=== PATIENT | female | born 1960 | race Caucasian/White ===

== ENCOUNTER 2016-07-05 08:56 | Inpatient (IN) | payer OTHER ==
[~2016-07-05] VITALS: Ht 170.2 cm; Wt 85.0 kg
--- NOTE | 2016-07-05 09:04 | NUR ---
EKG DONE IN TRIAGE
--- NOTE | 2016-07-05 09:16 | NUR ---
PT AMBULATORY TO BED 5 FROM TRIAGE WITH STEADY GAIT C/O CHEST PAIN X1 DAY. PT DESCRIBES PAIN CONSTANT AND STATES, "IT FEELS LIKE MY HEART IS WORKING REALLY HARD," REPORTS SHE WAS LAYING DOWN WHEN PAIN BEGAN. PT ALSO REPORTS HX OF ANXIETY WITH LAST TIME TAKING XANAX 6 MONTHS AGO D/T PAIN MANAGEMENT MD TAKING HER OFF OF IT. PT ALSO REPORTS SMOKING CIGARETTES, 1 PACK PER WEEK. PT A/O X4, APPEARS SLIGHTLY ANXIOUS, RESPS EVEN AND UNLABORED, SKIN WARM/DRY TO TOUCH, NO S/S OF DISTRESS NOTED. 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
--- NOTE | 2016-07-05 09:40 | NUR ---
DR. HAMMER AT BEDSIDE FOR MSE.
--- NOTE | 2016-07-05 09:59 | NUR ---
PORTABLE X-RAY IN PROGRESS AT BEDSIDE.
--- NOTE | 2016-07-05 09:59 | NUR ---
RT AT BEDSIDE ADMINISTERING BREATHING TX.
[2016-07-05 10:11] LABS: BASOPHIL % 0.4 % (0-2); PLATELET COUNT 293 x10^3mcL (130-400)
[2016-07-05 10:39] LABS: CALCIUM 8.9 mg/dL (8.5-10.1); CARBON DIOXIDE 27.2 mmol/L (21-32); CHLORIDE SERUM 104 mmol/L (98-107); CREATININE SERUM 0.8 mg/dL (0.6-1.0); GFR1 > 60 mL/min; GLUCOSE SERUM 104 mg/dL (74-106); POTASSIUM SERUM 4.4 mmol/L (3.5-5.1); SODIUM SERUM 141 mmol/L (136-145)
[2016-07-05 10:43] LABS: ALKALINE PHOSPHATASE 73 U/L (46-116); ALT/SGPT 15 U/L (14-59); AST/SGOT 11 U/L (15-37); BILIRUBIN TOTAL 0.37 mg/dL (0.20-1.00); CHOLESTEROL 157 mg/dL (<200); HDL CHOLESTEROL 59 mg/dL (40-60); TOTAL PROTEIN, SERUM 7.6 g/dL (6.4-8.2)
--- NOTE | 2016-07-05 10:55 | NUR ---
PT MEDICATED WITH NORCO 1 TAB 5/325MG PO FOR HEADACHE PER MD ORDERS. PT A/O X4, RESPS EVEN AND UNLABORED, CONTINUES WITH EPISODES OF APPEARING ANXIOUS WITH RESTLESSNESS, VSS, NO S/S OF DISTRESS NOTED.
[2016-07-05] MEDS ORDERED: PROZAC40 MG PO (11:23)
[2016-07-05] MEDS ORDERED: NOR10T PO (11:23)
--- NOTE | 2016-07-05 11:46 | NUR ---
REPORT CALLED TO FRANCISCO J RN, PT TO BE ADMITTED TO TELE ROOM 254A. PT IN NO ACUTE DISTRESS.
[2016-07-05 12:24] VITALS: BP 120/79
--- NOTE | 2016-07-05 12:30 | NUR ---
ADMITTED PT FROM ED. PT IS A/A/OX4 C/O MET[place]F 06/28 DESCRIBED PRESSURE TO TEMPLES AND TOP OF HEAD. RESP EVEN AND UNLABORED WITH CLEAR BS BILAT. PT REPORTS MILD SOB ASSOCIATED WITH CP. PT C/O CP DESCRIBED PRESSURE TO LT SIDE OF CHEST WITHOUT RADIATION OF PAIN. REPORTS OF MILD DIZZINESS. NO EDEMA NOTED WITH IV SL TO LFA. ABD SOFT, NONTENDER WITH ACTIVE BS X4. DENIES ANY N/V AT THIS TIME. REPORTS SOME EPISODES OF LOOSE STOOL THIS AM ABOUT 4X. VOIDING FREELY. AMBUALTORY, USES WALKER AT HOME. REPORTS CHRONIC BACK PAIN. ORIENTED TO ROOM AND CALL LIGHT SYSTEM. CALL LIGHT IN REACH NEEDS ATTENDED TO.
[2016-07-05 13:56] LABS: MAGNESIUM 2.1 mg/dL (1.8-2.4); PHOSPHOROUS 4.1 mg/dL (2.5-4.9)
[2016-07-05 14:07] LABS: FREE T4 1.22 ng/dL (0.76-1.46); FREE THYROXINE INDEX 3.7 ug/dL (1.4-4.5)
[2016-07-05 14:30] LABS: T3 TOTAL 1.3 ng/mL
--- NOTE | 2016-07-05 14:45 | NUR ---
PT C/O BACK PAIN 08/28, NOTED WITH ORDER OF ONE TIME DOSE OF TORADOL. GIVEN IVP ORDERED. WILL CONT TO MONITOR.
--- NOTE | 2016-07-05 17:15 | NUR ---
PT RESTING COMFORTABLY DR. SPIVEY AT BEDSIDE FOR EVAL.
[2016-07-05 17:25] VITALS: BP 112/58
--- NOTE | 2016-07-05 17:57 | NUR ---
OBTAINED SIGNATURE ON CONSENT FOR RELEASE OF MEDICAL RECORDS FROM [facility]. WILL CONT TO MONITOR.
--- NOTE | 2016-07-05 18:29 | NUR ---
PT RESTING AT THIS TIME DENIES ANY DISCOMFORT. CALL LIGHT IN REACH NEEDS AT THIS TIME.
--- NOTE | 2016-07-05 20:00 | NUR ---
IN BED WATCHING TV DENIES CP NOR PRESSURE, NO PALPITATIONS TELE #1 INPLACED SR IN THE MONITOR NO CP OR PRESSURE, NO DISTRESS LUNGS CTA, AMBULATING, IVF NS INFUSING @ 50CC/HR IV ACCESS @ LFA PATENT NON INFIL, SCD'S FOR DVT PROPHYLAXIS SHIFT ASSESSMENT DONE ATTENDED NEEDS CALL LIGHT AT REACH, CONT TO MONITOR AND PROCEED TO CURRENT PLAN OF CARE.
[2016-07-05 21:30] VITALS: BP 107/55
[2016-07-06 05:48] VITALS: BP 101/58
[2016-07-06 06:11] LABS: BASOPHIL % 0.2 % (0-2); PLATELET COUNT 294 x10^3mcL (130-400); RED CELL DISTRIBUTION WIDTH 14.1 % (11.5-14.5)
[2016-07-06 06:14] LABS: CALCIUM 8.3 mg/dL (8.5-10.1); CARBON DIOXIDE 25.7 mmol/L (21-32); CHLORIDE SERUM 107 mmol/L (98-107); CREATININE SERUM 0.7 mg/dL (0.6-1.0); GFR1 > 60 mL/min; GLUCOSE SERUM 130 mg/dL (74-106); SODIUM SERUM 143 mmol/L (136-145)
--- NOTE | 2016-07-06 06:47 | NUR ---
SLEPT WELL DURING THE SHIFT DENIES CP OR PRESSURE, SR IN THE MONITOR, DENIES PAIN NOR DISCOMFORTS, IVF INFUSING WELL, SCD'S ON FOR DVT PROPHYLAXIS, CONT TO MONITOR.
--- NOTE | 2016-07-06 07:50 | NUR ---
RECEIVED PT IN BED A/A/OX4 DENIES METCALF. RESP EVEN AND UNLABORED WITH CLEAR BS BILAT. DENIES ANY SOB/CP/PRESSURE AT THIS TIME. REPORTS IMPROVEMENT WITH SYMPTOMS FROM LAST NIGHT. NO EDEMA NOTED. ABD SOFT, NONTENDER WITH ACTIVE BS X4. DENIES ANY N/V AT THIS TIME. NO FURTHER EPISODES OF DIARRHEA AT THIS TIME. AMBULATORY CALL LIGHT IN REACH NEEDS ATTENDED TO.
--- NOTE | 2016-07-06 08:40 | NUR ---
PT C/O BACK PAIN 07/29 MEDICATED WITH NORCO PO ORDERED.
[2016-07-06 09:21] VITALS: BP 99/65
--- NOTE | 2016-07-06 12:04 | NUR ---
ECHOCARDIOGRAM DONE BY NORY ACOSTA.
--- NOTE | 2016-07-06 13:47 | NUR ---
PT C/O PAIN MEDICATED WITH NORCO PO ORDERED. WILL CONT TO MONITOR.
[2016-07-06 16:45] LABS: microscopic required? NO
[2016-07-06 16:56] LABS: UA SPECIFIC GRAVITY >=1.030 (1.005-1.035); urine erythrocyte NEGATIVE (NEGATIVE)
[2016-07-06 17:48] VITALS: BP 103/59
--- NOTE | 2016-07-06 19:45 | NUR ---
C/O BACK PAIN DURING INITIAL ROUNDS, 8/10 PER ASSESSMENT ABLE TO REPOSITIONED SELF INDEPENDENTLY IN BED, NOT IN DISTRESS LUNGS CTA, TELE #1 INPLACED NSR NO CP, PALPITATIONS NOR PRESSURE, IVF INFUSING WELL NS @ 50CC/HR IV ACCESS @ LFA PATENT NON INFIL, SCD'S ON FOR DVT PROPHYLAXIS, V/S STABLE, NORCO PO GIVEN PER PRN ORDER, SHIFT ASSESSMENT DONE, ATTENDED NEEDS CALL LIGHT AT REACH, CONT TO MONITOR AND PROCEED TO CURRENT PLAN OF CARE.
[2016-07-06 21:19] VITALS: BP 99/53
--- NOTE | 2016-07-07 02:28 | NUR ---
ASLEEP NO S/SX OF PAIN OR DISCOMFORTS, SR IN THE MONITOR, IVF INFUSING WELL NS @ 50CC/HR, SCD'S FOR DVT PROPHYLAXIS, CHECKED AT INTERVALS.
[2016-07-07 06:02] VITALS: BP 125/74
--- NOTE | 2016-07-07 06:29 | NUR ---
NO SIGNIFICANT CHANGES DURING THE SHIFT, DENIES PAIN NOR DISCOMFORTS, SLEPT WELL IVF INFUSING WELL, SR IN THE MONITOR, ATTENDED NEEDS CALL LIGHT AT REACH WILL ENODRSE TO INCOMING SHIFT FOR F/U CARE.
--- NOTE | 2016-07-07 07:21 | NUR ---
RECEIVED PT LAYING IN BED ASLEEP.NO APPARENT SIGNS OF ACUTE DISTRESS NOTED AT THIS TIME. IV SITE APPEARS PATENT AND INFUSING WELL. INFORMATION BOARD UPDATED. CALL LIGHT WITHIN REACH. WILL CONTINUE TO MONITOR
[2016-07-07 09:20] VITALS: BP 108/67
[2016-07-07] MEDS ORDERED: PAXIL CR25 MG PO (13:09)
[2016-07-07 13:44] VITALS: BP 108/67
[2016-07-07 13:45] VITALS: BP 111/68
[2016-07-07 16:51] VITALS: BP 112/67
--- NOTE | 2016-07-07 17:27 | NUR ---
WENT OVER DISCHARGE PAPERWORK AND PT TEACHING. PT APPEARS RECEPTIVE. IV ACCESS REMOVED, PT TOLERATED WELL. TELEBOX RETURNED TO [place] STATION. WRIST BAND REMOVED AND DISPOSED IN THE SHREDDER. NO APPARENT SIGNS OF ACUTE DISTRESS NOTED UPON DEPARTURE. PT ESCORTED BY NURSING STAFF.
== END 2016-07-07 17:30 | disposition home or self-care (01) | DRG 205 ==
LOC: ED 08:56 → DU 11:21
PROVIDERS: Emergency Medicine; ADMIT Family Medicine
DX: M94.0 Chondrocostal junction syndrome [Tietze] (principal); N17.0 Acute kidney failure with tubular necrosis; F33.1 Major depressive disorder, recurrent, moderate; I10 Essential (primary) hypertension; G43.909 Migraine, unspecified, not intractable, without status migrainosus; R73.03 Prediabetes; B18.2 Chronic viral hepatitis C; M54.9 Dorsalgia, unspecified; G89.29 Other chronic pain; F41.1 Generalized anxiety disorder; F17.210 Nicotine dependence, cigarettes, uncomplicated; Z68.29 Body mass index [BMI] 29.0-29.9, adult; Z86.73 Personal history of transient ischemic attack (TIA), and cerebral infarction without residual deficits; Z66 Do not resuscitate
CPT/HCPCS: 83880; 84439; 99406; J1885; J2930; J7030; J7613; Q0092; Q0163; Q0164

== ENCOUNTER 2016-11-20 16:52 | Emergency (ER) | payer OTHER, MEDICAID ==
[~2016-11-20] VITALS: Ht 170.2 cm; Wt 81.6 kg
[~2016-11-20 16:52] MED LIST: NOR10T PO; PAXIL CR25 MG PO; PROZAC40 MG PO
[2016-11-20 17:27] VITALS: BP 121/80
== END 2016-11-20 18:59 | disposition left against medical advice (07) ==
LOC: ED 16:52
DX: Z53.21 Procedure and treatment not carried out due to patient leaving prior to being seen by health care provider (principal)

== ENCOUNTER 2017-01-09 11:46 | Emergency (ER) | payer OTHER, MEDICAID ==
[2017-01-09 12:50] VITALS: BP 112/66
== END 2017-01-09 12:52 | disposition home or self-care (01) ==
LOC: ED 11:46
DX: M54.42 Lumbago with sciatica, left side (principal); J45.909 Unspecified asthma, uncomplicated
CPT/HCPCS: J3010

== ENCOUNTER 2018-02-06 10:44 | Emergency (ER) | payer OTHER ==
[~2018-02-06] VITALS: Ht 170.2 cm; Wt 80.7 kg
[2018-02-06 10:54] VITALS: Ht 170.2 cm; Wt 80.7 kg
[2018-02-06 11:23] LABS: BASOPHIL % 0.6 % (0-2); PLATELET COUNT 351 x10^3mcL (130-400); RED CELL DISTRIBUTION WIDTH 13.5 % (11.5-14.5)
[2018-02-06 11:32] LABS: CALCIUM 9.6 mg/dL (8.5-10.1); CARBON DIOXIDE 25.7 mmol/L (21-32); CHLORIDE SERUM 99 mmol/L (98-107); CREATININE SERUM 0.9 mg/dL (0.6-1.0); GFR1 > 60 mL/min; GLUCOSE SERUM 118 mg/dL (74-106); SODIUM SERUM 138 mmol/L (136-145)
[2018-02-06 11:36] LABS: ALBUMIN 4.4 g/dL (3.4-5.0); ALKALINE PHOSPHATASE 78 U/L (46-116); ALT/SGPT 14 U/L (14-59); AST/SGOT 12 U/L (15-37); BILIRUBIN TOTAL 0.4 mg/dL (0.20-1.00); LIPASE 69 IU/L (73-393)
[2018-02-06 11:37] LABS: TOTAL PROTEIN, SERUM 8.6 g/dL (6.4-8.2)
[2018-02-06 13:09] VITALS: BP 126/71
== END 2018-02-06 13:09 | disposition home or self-care (01) ==
LOC: ED 10:44
PROVIDERS: Emergency Medicine
DX: R10.11 Right upper quadrant pain (principal); R10.13 Epigastric pain; R11.2 Nausea with vomiting, unspecified; J45.909 Unspecified asthma, uncomplicated; G89.29 Other chronic pain; M54.9 Dorsalgia, unspecified; Z86.19 Personal history of other infectious and parasitic diseases
CPT/HCPCS: J1885; J2550; J7030

== ENCOUNTER 2018-03-23 10:38 | Emergency (ER) | payer OTHER ==
[~2018-03-23] VITALS: Ht 170.2 cm; Wt 82.6 kg
[2018-03-23 10:40] VITALS: Ht 170.2 cm; Wt 82.6 kg
[2018-03-23 11:56] VITALS: BP 151/93
== END 2018-03-23 11:56 | disposition home or self-care (01) ==
LOC: ED 10:38
DX: G89.29 Other chronic pain (principal); M54.5 Low back pain; J45.909 Unspecified asthma, uncomplicated; Z76.0 Encounter for issue of repeat prescription
CPT/HCPCS: J1885

== ENCOUNTER 2018-04-17 02:04 | Emergency (ER) | payer OTHER ==
[~2018-04-17] VITALS: Ht 170.2 cm; Wt 84.4 kg
[2018-04-17 02:13] VITALS: Ht 170.2 cm; Wt 84.4 kg
[2018-04-17 04:50] VITALS: BP 118/70
== END 2018-04-17 04:55 | disposition home or self-care (01) ==
LOC: ED 02:04
DX: G89.29 Other chronic pain (principal); M54.5 Low back pain; J45.909 Unspecified asthma, uncomplicated
CPT/HCPCS: J1885

== ENCOUNTER 2018-10-05 21:11 | Emergency (ER) | payer OTHER ==
[~2018-10-05] VITALS: Ht 170.2 cm; Wt 78.9 kg
[2018-10-05 21:14] VITALS: Ht 170.2 cm; Wt 78.9 kg
[2018-10-05 22:03] VITALS: BP 147/81
== END 2018-10-05 22:03 | disposition home or self-care (01) ==
LOC: ED 21:11
DX: F41.9 Anxiety disorder, unspecified (principal); R07.89 Other chest pain; R06.00 Dyspnea, unspecified; J45.909 Unspecified asthma, uncomplicated; G89.29 Other chronic pain

== ENCOUNTER 2019-01-14 15:22 | Emergency (ER) | payer OTHER ==
[~2019-01-14] VITALS: Ht 170.2 cm; Wt 79.8 kg
[2019-01-14 15:48] VITALS: BP 129/91; Ht 170.2 cm; Wt 79.8 kg
== END 2019-01-14 17:45 | disposition left against medical advice (07) ==
LOC: ED 15:22
DX: Z53.21 Procedure and treatment not carried out due to patient leaving prior to being seen by health care provider (principal)

== ENCOUNTER 2019-05-14 17:44 | Emergency (ER) | payer OTHER ==
[~2019-05-14] VITALS: Ht 170.2 cm; Wt 84.8 kg
[2019-05-14 18:09] VITALS: BP 166/95; Ht 170.2 cm; Wt 84.8 kg
== END 2019-05-14 20:00 | disposition home or self-care (01) ==
LOC: ED 17:44
DX: M54.5 Low back pain (principal); G89.29 Other chronic pain; J45.909 Unspecified asthma, uncomplicated
CPT/HCPCS: J1885

== ENCOUNTER → 2019-09-11 | Outpatient (CLI) | payer OTHER, SELFPAY ==
[~2019-09-11] VITALS: Ht 170.2 cm; Wt 85.7 kg
--- NOTE | 2019-09-16 12:30 | NUR ---
CALL TO PATIENT TO VERIFY PROCEDURE FOR TOMORROW. PER PT STATES "CANCELLING PROCEDURE HERE AT [facility]. WILL BE DOING PROCEDURE IN SEPTEMBER AT ANOTHER FACILITY." INSURANCE AND OR NOTIFIED.
== END | disposition home or self-care (01) ==
LOC: LB 10:00 → GI 09-17 08:30 → OR 09-17 10:00 → EDSTATUS 09-17 10:00 → OR 09-17 10:15
PROVIDERS: ATTEND Internal Medicine
DX: K27.3 Acute peptic ulcer, site unspecified, without hemorrhage or perforation (principal); R10.13 Epigastric pain
CPT/HCPCS: U0003-CS